=== PATIENT | male | born 1945 | race Caucasian/White ===

== ENCOUNTER 2018-12-18 14:48 | Emergency (ER) | payer MEDICARE ==
[2018-12-18] MEDS ORDERED: Lidocaine 1% MPF ** 5 ML VIAL ONE (15:50)
--- NOTE | 2018-12-18 15:54 | ED ---
Head Injury - HPI Summary HPI Summary: This patient is a 5 year old M presenting to ED with a chief complaint of head injury at 1300 today. Patient fell coming out of an RV. He has a laceration to the left eyebrow, but the bleeding is controlled. Per patients brother/ caregiver, the patient is nonverbal at baseline. Patient denies loss of consciousness and vomiting. He is not on blood thinners. The patient rates the pain 0/10 in severity. Symptoms aggravated by nothing. Symptoms alleviated by nothing. - History Of Current Complaint Chief Complaint: EDHeadInjury Stated Complaint: CUT OVER LEFT EYE PER PT BROTHER Time Seen by Provider: 12/18/18 15:40 Hx Obtained From: Patient, Family/Financial Operations Analyst Mechanism Of Injury: Fall From A Standing Position Onset/Duration: Started Hours Ago - 1300 today, Still Present Onset of Pain: Post Accident Severity Currently: Mild Severity Initially: Mild Pain Intensity: 0 Pain Scale Used: 0-10 Numeric Location of Head Injury: Other: - Left eyebrow Location: Discrete At: - Left eyebrow Aggravating Factor(s): Other: - Nothing Alleviating Factor(s): Other: - Nothing Associated Signs And Symptoms: Negative - LOC, vomiting - Allergies/Home Medications Allergies/Adverse Reactions: Allergies Allergy/AdvReac Type Severity Reaction Status Date / Time No Known Allergies Allergy Verified 12/18/18 14:54 PMH/Surg Hx/FS Hx/Imm Hx Sensory History: Denies: Hx Legally Blind, Hx Deafness Opthamlomology History: Denies: Hx Legally Blind EENT History: Denies: Hx Deafness Neurological History: Reports: Other Neuro Impairments/Disorders - Mental retardation - Surgical History Surgery Procedure, Year, and Place: denies Infectious Disease History: No Infectious Disease History: Denies: Traveled Outside the [place] in Last 30 Days - Family History Known Family History: Negative: Hypertension - Social History Alcohol Use: None Hx Substance Use: No Substance Use Type: Reports: None Hx Tobacco Use: No Smoking Status (MU): Never Smoked Tobacco Review of Systems Negative: Vomiting Skin: Other - Laceration above left eyebrow Neurological: Negative - LOC All Other Systems Reviewed And Are Negative: Yes Physical Exam - Summary Physical Exam Summary: VITAL SIGNS: Reviewed. GENERAL: Patient is a well-developed and nourished M who is lying comfortable in the stretcher. Patient is not in any acute respiratory distress. HEAD AND FACE: No signs of trauma. No ecchymosis, hematomas or skull depressions. No sinus tenderness. EYES: PERRLA, EOMI x 2, No injected conjunctiva, no nystagmus. EARS: Hearing grossly intact. Ear canals and tympanic membranes are within normal limits. MOUTH: Oropharynx within normal limits. NECK: Supple, trachea is midline, no adenopathy, no JVD, no carotid bruit, no c- spine tenderness, neck with full ROM. CHEST: Symmetric, no tenderness at palpation. LUNGS: Clear to auscultation bilaterally. No wheezing or crackles. CVS: Regular rate and rhythm, S1 and S2 present, no murmurs or gallops appreciated. ABDOMEN: Soft, non-tender. No signs of distention. No rebound, no guarding, and no masses palpated. Bowel sounds are normal. EXTREMITIES: FROM in all major joints, no edema, no cyanosis or clubbing. NEURO: Alert and oriented x 3. No acute neurological deficits. Speech is normal and follows commands. SKIN: 2.5cm laceration of left eyebrow Triage Information Reviewed: Yes Vital Signs On Initial Exam: Initial Vitals Temp Pulse Resp BP Pulse Ox 98.4 F 93 18 130/98 100 12/18/18 14:49 12/18/18 14:49 12/18/18 14:49 12/18/18 14:49 12/18/18 14:49 Vital Signs Reviewed: Yes Diagnostics - Vital Signs Vital Signs Temp Pulse Resp BP Pulse Ox 12/18/18 14:49 98.4 F 93 18 130/98 100 - Laboratory Lab Statement: Any lab studies that have been ordered have been reviewed, and results considered in the medical decision making process. - Attestation Statements Document Initiated by Scribe: Yes Documenting Scribe: Kevin Lara Provider For Whom Scribe is Documenting (Include Credential): Alexy Hutchins MD Scribe Attestation: Kevin Ly, scribed for Alexy Hutchins MD on 12/18/18 at 1556.
--- NOTE | 2018-12-18 16:30 | ED ---
Laceration/Wound HPI - HPI Summary HPI Summary: This patient is a 73-year-old male presenting to the ED after a fall out of an RV this morning. He has a laceration to the left eyebrow measuring approximately 4 cm in length and 0.5 cm in width. Laceration is superficial at 0.2 cm. Patient is nonverbal. Header Set Up Operator at bedside. Bleeding is well controlled on arrival. Patient is not currently on blood thinners. - History of Current Complaint Stated Complaint: CUT OVER LEFT EYE PER PT BROTHER Time Seen by Provider: 12/18/18 15:40 Hx Obtained From: Patient Mechanism of Injury: Sharp/Blunt Trauma Onset/Duration: Sudden Onset Aggravating: Movement Alleviating: Compression Timing: Constant Onset Severity: Mild Current Severity: None Pain Intensity: 0 Pain Scale Used: 0-10 Numeric Associated Signs & Symptoms: Negative - Allergy/Home Medications Allergies/Adverse Reactions: Allergies Allergy/AdvReac Type Severity Reaction Status Date / Time No Known Allergies Allergy Verified 12/18/18 14:54 PMH/Surg Hx/FS Hx/Imm Hx Previously Healthy: Yes - Immunization History Hx Pertussis Vaccination: No Immunizations Up to Date: Yes Infectious Disease History: No Infectious Disease History: Denies: Traveled Outside the [place] in Last 30 Days - Social History Occupation: Unemployed, Disabled Lives: With Family Alcohol Use: None Hx Substance Use: No Substance Use Type: Reports: None Smoking Status (MU): Never Smoked Tobacco Review of Systems Constitutional: Negative Negative: Fever, Chills, Fatigue, Skin Diaphoresis Negative: Palpitations, Chest Pain Negative: Shortness Of Breath, Cough Genitourinary: Negative Positive: no symptoms reported, see HPI Negative: Arthralgia, Myalgia Skin: Negative Neurological: Negative All Other Systems Reviewed And Are Negative: Yes Physical Exam Triage Information Reviewed: Yes Vital Signs On Initial Exam: Initial Vitals Temp Pulse Resp BP Pulse Ox 98.4 F 93 18 130/98 100 12/18/18 14:49 12/18/18 14:49 12/18/18 14:49 12/18/18 14:49 12/18/18 14:49 Vital Signs Reviewed: Yes Appearance: Positive: Well-Appearing, Well-Nourished Skin: Positive: Warm, Skin Color Reflects Adequate Perfusion, Other - laceration 3cm Head/Face: Positive: Normal Head/Face Inspection Eyes: Positive: EOMI, JALEEL, Conjunctiva Clear Neck: Positive: Supple, No Lymphadenopathy Respiratory/Lung Sounds: Positive: Clear to Auscultation, Breath Sounds Present Cardiovascular: Positive: RRR, Pulses are Symmetrical in both Upper and Lower Extremities Musculoskeletal: Positive: Normal, Strength/ROM Intact Neurological: Positive: Speech Normal Psychiatric: Positive: Normal, Affect/Mood Appropriate Diagnostics - Vital Signs Vital Signs Temp Pulse Resp BP Pulse Ox 12/18/18 14:49 98.4 F 93 18 130/98 100 - Laboratory Lab Statement: Any lab studies that have been ordered have been reviewed, and results considered in the medical decision making process. Laceration Repair Course/Dx - Course Course Of Treatment: Laceration repair: Cleanse wound thoroughly. Lidocaine 2 mL. Patient tolerated well. 3 sutures placed using simple interrupted 4-0 Prolene. Patient will return in 5 days for suture removal. Patient appears otherwise well. Nonverbal. History of present illness and ROS limited. - Differential Dx Differental Diagnoses: Laceration - Clinical Impression Provider Diagnoses: Laceration Discharge ED - Sign-Out/Discharge Documenting (check all that apply): Patient Departure Patient Received Moderate/Deep Sedation with Procedure: No - Discharge Plan Condition: Stable Disposition: HOME Patient Education Materials: Care For Your Stitches (ED), Laceration (ED) Additional Instructions: Keep the area without gauze over Cleanse daily - but gently Return to the ED Sunday or Sunday next week for Edna mccallum, to take sutures out Must still check in at credit front office developer - Billing Disposition and Condition Condition: STABLE Disposition: Home
[2018-12-18 16:36] VITALS: BP 124/79
== END 2018-12-18 16:30 | disposition home or self-care (01) ==
LOC: ED 14:48
DX: S01.112A Laceration without foreign body of left eyelid and periocular area, initial encounter (principal); W17.89XA Other fall from one level to another, initial encounter; Y92.9 Unspecified place or not applicable
CPT/HCPCS: 12013; 99282

== ENCOUNTER 2018-12-24 14:07 | Emergency (ER) | payer MEDICARE ==
--- NOTE | 2018-12-24 15:20 | ED ---
Skin Complaint - HPI Summary HPI Summary: This patient is a 73-year-old male presenting to the ED for suture removal. Sutures were placed 6 days ago after a fall. Caregiver at bedside states the area has been healing well. Caregiver has been stating he has also had a cough. No fevers, sweats, chills. Not coughing anything up. Caregiver states he is otherwise okay. - History of Current Complaint Chief Complaint: EDLacSutureRecheck Time Seen by Provider: 12/24/18 14:43 Stated Complaint: REMOVE STITCHES PER BROTHER Hx Obtained From: Patient Onset/Duration: Started Hours Ago Skin Exposure Onset/Duration: Hours Ago Timing: Constant Onset Severity: Mild Current Severity: Mild Pain Intensity: 0 Pain Scale Used: 0-10 Numeric Aggravating Symptom(s): Nothing Alleviating Symptom(s): Nothing Associated Signs & Symptoms: Negative - Allergy/Home Medications Allergies/Adverse Reactions: Allergies Allergy/AdvReac Type Severity Reaction Status Date / Time No Known Allergies Allergy Verified 12/24/18 15:10 PMH/Surg Hx/FS Hx/Imm Hx Previously Healthy: Yes Infectious Disease History: No Infectious Disease History: Denies: Traveled Outside the [place] in Last 30 Days - Social History Occupation: Unemployed Lives: With Family Alcohol Use: None Hx Substance Use: No Substance Use Type: Reports: None Smoking Status (MU): Never Smoked Tobacco Review of Systems Negative: Fever, Chills, Fatigue, Skin Diaphoresis Positive: Cough. Negative: Shortness Of Breath Negative: Abdominal Pain, Vomiting, Diarrhea Genitourinary: Negative Positive: no symptoms reported, see HPI Negative: Arthralgia, Myalgia Neurological: Negative All Other Systems Reviewed And Are Negative: Yes Physical Exam Triage Information Reviewed: Yes Vital Signs On Initial Exam: Initial Vitals Temp Pulse Resp BP Pulse Ox 96.1 F 93 18 108/82 98 12/24/18 14:13 12/24/18 14:13 12/24/18 14:13 12/24/18 14:13 12/24/18 14:13 Vital Signs Reviewed: Yes Appearance: Positive: Well-Appearing, Well-Nourished Skin: Positive: Warm, Skin Color Reflects Adequate Perfusion, Other - 3cm laceration Head/Face: Positive: Normal Head/Face Inspection Eyes: Positive: EOMI, JALEEL, Conjunctiva Clear Neck: Positive: Supple, No Lymphadenopathy Respiratory/Lung Sounds: Positive: Clear to Auscultation Cardiovascular: Positive: RRR, Pulses are Symmetrical in both Upper and Lower Extremities Musculoskeletal: Positive: Strength/ROM Intact Neurological: Positive: Sensory/Motor Intact, Alert, Oriented to Person Place, Time, Speech Normal Psychiatric: Positive: Affect/Mood Appropriate AVPU Assessment: Alert Procedures - Sedation Patient Received Moderate/Deep Sedation with Procedure: No Diagnostics - Vital Signs Vital Signs Temp Pulse Resp BP Pulse Ox 12/24/18 14:13 96.1 F 93 18 108/82 98 - Laboratory Lab Statement: Any lab studies that have been ordered have been reviewed, and results considered in the medical decision making process. Course/Dx - Course Course Of Treatment: Laceration appears well. 3 sutures removed. Noticeable cough. No discharge. Lungs CTA. We'll give Tessalon at this time. Encouraged caregiver to return to the ED for any fevers, sweats, chills or other symptoms. - Diagnoses Provider Diagnoses: Visit for suture removal, Cough Discharge ED - Sign-Out/Discharge Documenting (check all that apply): Patient Departure - Discharge Plan Condition: Stable Disposition: HOME Prescriptions: Benzonatate CAP* [Tessalon CAP*] 100 mg PO TID #21 cap Patient Education Materials: Benzonatate (By mouth) Referrals: Anil Cantu MD [Primary Care Provider] - Additional Instructions: Antibiotic ointment over the area may help Tessalon up to 3 times daily as needed for cough If he develops any sweats, chills or fevers, return to the ED - Billing Disposition and Condition Condition: STABLE Disposition: Home - Attestation Statements Provider Attestation: pt seen by midlevel provider independently, based on their assessment, it was not necessary to present the case to me but I was available for consultation. I did not form a physician-patient relationship with the patient. The chart however, has been reviewed. am signing this note strictly in an administrative capacity. Addendum entered and electronically signed by Edna Waddell PA 12/28/18 05:46 : ED Addendum Addendum: Family hx not obtained
[2018-12-24 15:28] VITALS: BP 110/80
== END 2018-12-24 15:27 | disposition home or self-care (01) ==
LOC: ED 14:07
DX: S01.81XD Laceration without foreign body of other part of head, subsequent encounter (principal); R05 Cough; Z48.02 Encounter for removal of sutures; W19.XXXD Unspecified fall, subsequent encounter
CPT/HCPCS: 99282